=== PATIENT | male | born 1965 | race Two or more races ===

== ENCOUNTER 2019-02-20 18:52 | Emergency (ER) | payer BC ==
[~2019-02-20] VITALS: Ht 175.3 cm; Wt 80.0 kg
[2019-02-20] MEDS ORDERED: ASPIRIN 81MG TABLET PO ONE (21:15)
[2019-02-20] MEDS ORDERED: NITROGLYCERIN 0.4MG TABLET SL SL PRN (21:15)
[2019-02-20 21:38] LABS: HEMATOCRIT. 45.6 % (42.0-52.0); HEMOGLOBIN. 15.3 g/dL (14.0-18.0); MEAN CORPUSCULAR VOLUME 86.7 fL (80.0-94.0); MEAN PLATELET VOLUME 8.2 fl (7.4-10.4); PLATELET 147 x1000/uL (130-400); RED BLOOD CELL COUNT 5.26 mill/uL (4.7-6.1); RED CELL DISTRIBUTION WIDTH 14.1 % (11.6-14.6)
[2019-02-20 21:41] LABS: CHLORIDE 111 mEq/L (98-107)
[2019-02-20 22:13] LABS: PLATELET ESTIMATE NORMAL
[2019-02-20] MEDS ORDERED: ACETAMINOPHEN WITH CODEINE 300/30MG TABLET PO ONE (22:45)
[2019-02-20] MEDS ORDERED: ONDANSETRON 4MG ODT PO ONE (22:45)
[2019-02-20 22:54] VITALS: BP 115/74
== END 2019-02-20 22:55 | disposition home or self-care (01) ==
LOC: ER 18:52
DX: R07.89 Other chest pain (principal)
CPT/HCPCS: 36415; 71045; 80053; 84484; 85025; 93005; 99284; Q0162; Z7610